=== PATIENT | female | born 1945 | race Caucasian/White ===

== ENCOUNTER → 2016-11-05 | Outpatient (CLI) | payer MEDICARE ==
--- NOTE | 2016-11-05 12:08 | US ---
EXAMINATION TYPE: US transvaginal DATE OF EXAM: 11/05/2016 COMPARISON: Previous study dated 05/16/2016. CLINICAL HISTORY: R93.8 Previous abnormal pelvis us. 6 month F/U to previous US, pt states having D&C since previous US TECHNIQUE: Transvaginal (TV) EXAM MEASUREMENTS: Uterus: 6.0 x 23 x 4.0 cm Endometrial Stripe: 0.5 cm Right Ovary: 1.2 x 1.0 x 1.1 cm 1. Uterus: Anteverted wnl postmenopausal 2. Endometrium: Fluid within canal as seen on previous 3. Right Ovary: wnl 4. Left Ovary: Obscured by overlying bowel gas 5. Bilateral Adnexa: wnl 6. Posterior cul-de-sac: wnl IMPRESSION: SMALL AMOUNT OF FLUID WITHIN THE ENDOMETRIAL CANAL BUT OTHERWISE NORMAL PELVIC ULTRASOUND.
== END | disposition home or self-care (01) ==
LOC: RADUSWWP 10:55
PROVIDERS: ATTEND Obstetrics & Gynecology
DX: R93.8 Abnormal findings on diagnostic imaging of other specified body structures (principal)
CPT/HCPCS: 76830

== ENCOUNTER → 2019-04-19 | Outpatient (CLI) | payer MEDICARE ==
--- NOTE | 2019-04-19 10:54 | FL ---
EXAMINATION TYPE: FL barium swallow DATE OF EXAM: 04/19/2019 CLINICAL HISTORY: Dysphagia and GERD per order. Continued sinus drainage and increased throat secreti ons even despite mass removed from inside throat 2 weeks ago. TECHNIQUE: A double contrast esophagram is performed utilizing air and barium. A total of 15 second s of fluoroscopic time was utilized during procedure. 56 spot images are saved to PACS. COMPARISON: None FINDINGS: The esophagus shows normal motility and emptying into the stomach. No evidence of fixed hi atal hernia or stricture noted. No abnormal outpouching or diverticulum. No significant gastroesophag eal reflux was seen during real time performance of this study. IMPRESSION: No significant abnormality is seen to account for patient's symptoms.
== END | disposition home or self-care (01) ==
LOC: RADUSWWP 09:40
PROVIDERS: ATTEND Otolaryngology
DX: R13.10 Dysphagia, unspecified (principal); K21.9 Gastro-esophageal reflux disease without esophagitis; R44.8 Other symptoms and signs involving general sensations and perceptions
CPT/HCPCS: 74220

== ENCOUNTER → 2019-10-05 | Outpatient (CLI) | payer SELFPAY | END | disposition home or self-care (01) | LOC: LABWHC1 11:34 | PROVIDERS: ATTEND Otolaryngology | DX: J30.89 Other allergic rhinitis (principal) | CPT/HCPCS: 36415 ==